=== PATIENT | male | born 1950 | race Caucasian/White ===

== ENCOUNTER 2017-01-14 08:31 | Outpatient (CLI) | payer MEDICARE, OTHER ==
--- NOTE | ~2017-01-14 | HEMODYNAMI ---
PATIENT:MARIE JOHNSON MEDICAL RECORD: [id number] : 52 LOCATION:[facility] ADMISSION DATE: 01/14/17 Generatedon:01/14/201714:12 Patient name: MARIE JOHNSON Patient #: [id number] SSN: : 1950 Date of study: 01/14/2017 Page: Of Hemodynamic Procedure Report Patient Data Patient Demographics Procedure consent was obtained First Name: MARIE Gender: Male Last Name: ALEX : 1950 Middle Initial: SHANNEN Age: 66 year(s) Patient #: [id number] Race: Unknown Additional ID: [id number] Contact details [address]: [address] [place] [address] State: [place] City: [place] Zip code: [address] Admission Admission Data Admission Date: 01/14/2017 Admission Time: 8:31 Arrival Date: 01/14/2017 Arrival Time: 0:00 Admit Source: Other Insurance Payor: Medicare Height (in.): 72 BSA: 2.07 (m2) Height (cm.): 182.88 BMI: 25.36 (kg/m2) Weight (lbs.): 187 Weight (kg.): 84.82 Lab Results Lab Result Date: 01/14/2017 Lab Result Time: 0:00 Biochemistry Name Units Result Min Max BUN mg/dl 13 --(--*-)-- 7 18 Creatinine mg/dl 1 --(--*-)-- 0.6 1.3 CBC Name Units Result Min Max Hemoglobin g/dl 16.4 --(--*-)-- 13.5 17.5 Procedure Procedure Types Cath Procedure Diagnostic Procedure LHC LHC w/Coronaries w/Grafts PCI Procedure Coronary Stent Initial Miscellaneous Procedures Moderate Sedation up to 30 minutes Procedure Description Procedure Date Procedure Date: 01/14/2017 Procedure Start Time: 13:54 Procedure End Time: 14:07 Procedure Staff Name Function Kevon Adames MD Performing Physician Lashanda Vasquez RT Scrub Celso Tejada RN Nurse Shahana Dill RT Monitor Procedure Data Cath Procedure Fluoroscopy Diagnostic fluoroscopy Total fluoroscopy Time: 3.9 time: 3.9 min min Diagnostic fluoroscopy Total fluoroscopy dose: 789 dose: 789 mGy mGy Contrast Material Contrast Material Type Amount (ml) Isovue 300 116 Entry Location Entry Primary Successful Side Size Upsize Upsize Entry Closure Succes sful Closure Location (Fr) 1 (Fr) 2 (Fr) Remarks Device Remarks Femoral Right 5 Fr 6 Fr Exoseal artery Short Estimated blood loss: 5 ml Diagnostic catheters Device Type Used For End Catheter Placement Cordis 5Fr Pigtail LV Angiography Catheter (MP) Cordis 5Fr JL 4.0 Left Coronary Catheter (MP) Angiography Diagnostic Infinity 5Fr Multi-vessel AR 2 MOD catheter Angiography Procedure Complications No complications Procedure Medications Medication Administration Route Dosage Oxygen NC 2 l/min Lidocaine 2% added to field 20 Heparin Flush Bag added to field 2 bags (1000units/500ml NS) 0.9% NaCl I.V. 100 ml/hr Versed I.V. 2 mg Fentanyl I.V. 100 mcg Fentanyl I.V. 50 mcg Versed I.V. 1 mg Fentanyl I.V. 50 mcg Versed I.V. 1 mg Heparin Bolus I.V. 4000 units Versed I.V. 1 mg Fentanyl I.V. 50 mcg Versed I.V. 1 mg Fentanyl I.V. 50 mcg Hemodynamics Rest BSA: 2.07 (m2) HGB: 16.4 (g/dl) O2 Consumption: Estimated: 248.13 (ml/min) O2 Co nsumption indexed: Estimated:119.87 (ml/min/m) Heart Rate: 79 (bpm) Pressure Samples Time Site Value (mmHg) Purpose Heart Use Rate(bpm) 13:55 LV 107/13,17 Snapshot 78 Snapshots Pre Cath Intra NCS Post Cath Vital Signs Time Heart Resp SPO2 etCO2 NIBP (mmHg) Rhythm Pain Sedation Rate (ipm) (%) (mmHg) Status Level (bpm) 13:27:49 74 16 100 35.5 150/83(137) NSR 0 (11) 10(A) , No pain 13:32:01 78 14 100 27.9 134/89(114) NSR 0 (11) 10(A) , No pain 13:36:11 74 17 100 36.3 136/86(112) NSR 0 (11) 10(A) , No pain 13:40:19 73 15 95 33.2 125/89(107) NSR 0 (11) 10(A) , No pain 13:44:22 74 16 98 37.8 122/90(111) NSR 0 (11) 10(A) , No pain 13:49:11 82 17 99 27.9 134/85(104) NSR 0 (11) 9(A) , No pain 13:53:21 85 14 98 37 107/82(104) NSR 0 (11) 9(A) , No pain 13:57:17 91 14 98 0 117/92(111) NSR 0 (11) 9(A) , No pain 14:01:16 86 14 99 24.1 134/92(110) NSR 0 (11) 10(A) , No pain 14:05:26 92 14 99 37 122/79(102) NSR 0 (11) 10(A) , No pain 14:11:04 81 18 99 35.5 125/88(107) NSR 0 (11) 10(A) , No pain Medications Time Medication Route Dose Verified Delivered Reason Notes Effectiveness by by 13:26:21 Oxygen NC 2 Kevon Buffie used for l/min Rosangela Tejada RN procedure 13:26:27 Lidocaine 2% added 20ml Kevon Kevon for local to vial Rosangela Adames MD anesthetic field 13:26:32 Heparin Flush added 2 Kevon Kevon used for Bag to bags Rosangela Adames MD procedure (1000units/500ml field NS) 13:26:42 0.9% NaCl I.V. 100 Kevon Buffie Per physician ml/hr Rosangela Tejada RN 13:46:10 Versed I.V. 2 mg Kevon Buffie for sedation Rosangela Tejada RN 13:46:21 Fentanyl I.V. 100 Kevon Buffie for sedation mcg Rosangela Tejada RN 13:51:04 Fentanyl I.V. 50 Kevon Buffie for sedation mcg Rosangela Tejada RN 13:51:09 Versed I.V. 1 mg Kevon Buffie for sedation Rosangela Tejada RN 13:54:00 Fentanyl I.V. 50 Kevon Bessie for sedation mcg Rosangela Tejada RN 13:54:14 Versed I.V. 1 mg Kevon [place] for sedation Rosangela Tejada RN 14:01:12 Heparin Bolus I.V. 4000 Kevon [place] for verifi ed units Rosangela Tejada RN anticoagulation by 14:02:51 Versed I.V. 1 mg Kevon [place] for sedation Rosangela Tejada RN 14:02:56 Fentanyl I.V. 50 Kevon [place] for sedation mcg Rosangela Tejada RN 14:06:17 Versed I.V. 1 mg Kevon [place] for sedation Rosangela Tejada RN 14:06:21 Fentanyl I.V. 50 Kevon [place] for sedation mcg Rosangela Tejada RN Procedure Log Time Note 13:16:36 Informed consent obtained and on chart 13:16:40 Diagnostic Cath Status : Elective 13:17:04 Lashanda Vasquez RT(R) sent for patient. Start room use. 13:17:06 Time tracking: Regular hours 13:17:10 Plan of Care:Hemodynamics will remain stable., Cardiac rhythm will remain stable., Comfort level will be maintained., Respiratory function will remain adequate., Patient/ family verbilizes understanding of procedure., Procedure tolerated without complication., Recovers from procedure without complications.. 13:17:47 Admit Source: Other 13:17:51 Patient Height : 72 inches 13:17:59 Patient Weight : 187 lbs 13:17:59 Insurance Payor : Medicare 13:18:01 Arrival Date: 01/14/2017 12:00:00 AM 13:20:40 Lab Result : BUN 13 mg/dl 13:20:40 Lab Result : Hemoglobin 16.4 g/dl 13:20:40 Lab Result : Creatinine 1 mg/dl 13:23:34 Patient received from Pre/Post Procedure Room to CCL 1 Alert and oriented. Tansferred to table in Supine position. 13:23:35 Warm blankets applied, and mckenzie hugger turned on for patient comfort. 13:23:36 Correct patient and procedure confirmed by team. 13:23:36 ECG and BP/O2 sat monitors applied to patient. 13:26:21 Oxygen 2 l/min NC was administered by Celso Tejada RN; used for procedure; 13:26:27 Lidocaine 2% 20ml vial added to field was administered by Kevon Adames MD; for local anesthetic; 13:26:32 Heparin Flush Bag (1000units/500ml NS) 2 bags added to field was administered by Kevon Adames MD; used for procedure; 13:26:42 0.9% NaCl 100 ml/hr I.V. was administered by Celso Tejada RN; Per physician; 13:26:46 Vital chart was started 13:31:14 Baseline sample Acquired. 13:31:18 Rhythm: sinus rhythm 13:31:22 Full Disclosure recording started 13:31:27 H&P Date Dictated: 01/14/2017 Within 30 days and on chart., H&P Addendum completed by physician on day of procedure. (MUST COMPLETE FOR ALL OUTPATIENTS). 13:31:28 Pre-procedure instructions explained to patient. 13:31:29 Pre-op teaching completed and patient verbalized understanding. 13:31:30 Family in waiting room. 13:31:31 Patient NPO since Midnight. 13:31:53 Is the patient allergic to Iodine/contrast media? No. 13:31:54 Was the patient premedicated? No 13:31:55 Is patient on blood thinner?Yes 13:31:57 ACC The patient was administered the following blood thiners within the last 24 hours: ACCPlavix 13:31:59 Patient diabetic? No. 13:32:07 Previous problem with sedation/anesthesia? No ? 13:32:09 Snore? Yes 13:32:10 Sleep apnea? No 13:32:10 Deviated septum? No 13:32:11 Opens mouth fully? Yes 13:32:12 Sticks out tongue? Yes 13:32:14 Airway obstruction? No ? 13:32:16 Dentures? No ? 13:32:20 Pre procedure: right dorsailis pedis pulse 1+ Palpable, but thready & weak; easily obliterated 13:32:22 Pre procedure: left dorsailis pedis pulse 1+ Palpable, but thready & weak; easily obliterated 13:32:24 Patient pain scale 0/10 ?. 13:32:30 IV patent on arrival in left forearm with 0.9% NaCl at [facility]. 13:32:32 Lab results completed and on chart. 13:32:36 Right groin area was prepped with chlora-prep and draped in sterile fashion 13:32:37 Alarms reviewed by R. N. 13:32:38 Sharps counted by scrub and verified by R.N. 13:45:33 Physician arrived 13:45:33 --------ALL STOP TIME OUT------ 13:45:34 Final Timeout: patient, procedure, and site verified with staff and physician. All members of the team are in agreement. 13:45:36 Right groin site verified by team. 13:45:39 Physical assessment completed. ASA score P 2 - A patient with mild systemic disease as per Kevon Adames MD. 13:45:42 Sedation plan: IV Moderate Sedation Versed, Fentanyl 13:46:10 Versed 2 mg I.V. was administered by Celso Tejada RN; for sedation; 13:46:21 Fentanyl 100 mcg I.V. was administered by Celso Tejada RN; for sedation; 13:50:29 Use device set Femoral Dx 13:50:30 Acist Syringe opened to sterile field. 13:50:31 Bag Decanter opened to sterile field. 13:50:31 Medline Cath Pack opened to sterile field. 13:50:32 Terumo 5Fr Gary Sheath opened to sterile field. 13:50:32 St Sergio 260cm J .035 wire opened to sterile field. 13:50:34 Acist Hand Control opened to sterile field. 13:50:34 Acist Manifold opened to sterile field. 13:50:35 Diagnostic Infinity 5Fr Multipack catheter opened to sterile field. 13:50:35 Tegaderm 4 x 4 opened to sterile field. 13:51:04 Fentanyl 50 mcg I.V. was administered by Celso Tejada RN; for sedation; 13:51:09 Versed 1 mg I.V. was administered by Celso Tejada RN; for sedation; 13:52:08 Zero performed for pressure channel P1 13:54:00 Fentanyl 50 mcg I.V. was administered by Celso Tejada RN; for sedation; 13:54:14 Versed 1 mg I.V. was administered by Celso Tejada RN; for sedation; 13:54:32 Procedure started. 13:54:37 Local anesthetic to right femoral artery with Lidocaine 2% by Kevon Adames MD.INITIAL ACCESS ONLY 13:54:45 A 5 Fr sheath was inserted into the Right Femoral artery 13:55:28 A Cordis 5Fr Pigtail Catheter (MP) was advanced over the wire and used for LV Angiography. 13:55:45 LV hemodynamics recorded. 13:55:46 LV gram done using ARMSTRONG 13:55:50 Injector settings: Ml/sec: 5, Volume: 15, 13:55:55 EF : 60 % 13:55:58 Catheter removed. 13:56:03 A Cordis 5Fr JL 4.0 Catheter (MP) was advanced over the wire and used for Left Coronary Angiography. 13:56:38 LCA angiography performed. 13:56:42 Injector settings: Ml/sec: 3, Volume: 6, 13:57:38 Catheter removed. 13:58:07 A Diagnostic Infinity 5Fr AR 2 MOD catheter was advanced over the wire and used for Multi-vessel Angiography. 13:58:17 Terumo 6Fr Gary Sheath opened to sterile field. 13:58:19 Merit BasixCompak Inflation Kit opened to sterile field. 13:58:58 SVG to RCA angiography performed. 14:00:41 DANIELSON angiography performed. 14:00:46 Catheter removed. 14:00:50 Proceeding to intervention. 14:01:00 Sheath upsized to a 6 Fr Short. 14:01:12 Heparin Bolus 4000 units I.V. was administered by Celso Tejada RN; for anticoagulation; verified by 14:01:14 Cordis 6FR XBLAD 3.5 guide catheter opened to sterile field. 14:01:36 6 Fr xblad 3.5 guide catheter was inserted over the wire 14:02:51 Versed 1 mg I.V. was administered by Celso Tejada RN; for sedation; 14:02:56 Fentanyl 50 mcg I.V. was administered by Celso Tejada RN; for sedation; 14:03:25 Ngo Whisper J 300cm 0.014 guide wire opened to sterile field. 14:03:34 whisper wire advanced. 14:03:37 Wire advanced across lesion. 14:03:55 Inflation Number: 1 A Keaton OTW 2.5 x 22 stent was prepped and advanced across the Prox LAD. The stent was deployed at 13 MARKIE for 0:10 (min:sec). 14:04:03 Inflation number: 2 The stent balloon was then re-inflated across the Prox LAD to 17 MARKIE for 0:10 (min:sec). 14:04:44 Stent catheter was removed intact over wire. 14:04:49 Wire removed. 14:04:50 Guide catheter removed. 14:05:17 Cordis 6Fr Exoseal opened to sterile field. 14:06:16 Sheath removed intact; hemostasis achieved with Exoseal to the Right Femoral artery. 14:06:17 Versed 1 mg I.V. was administered by Celso Tejada RN; for sedation; 14:06:18 Procedure ended.(Physican Out) 14:06:21 Fentanyl 50 mcg I.V. was administered by Celso Tejada RN; for sedation; 14:06:23 Fluoroscopy time 03.90 minutes. 14:06:28 Flurop Dose total: 789 14:06:28 Fluoroscopy dose: 789 mGy 14:06:33 Contrast amount:Isovue 300 116ml. 14:06:35 Sharps counted by scrub and verified by R.N. 14:06:36 Insertion/operative site no bleeding no hematoma. 14:06:39 Post-op/insertion site Right Femoral artery dressed using a 4 x 4 and Tegaderm. 14:06:42 Post right femoral artery:stable 14:06:50 Post Procedure Pulses reassessed and unchanged 14:06:53 Post procedure rhythm: unchanged. 14:06:55 Estimated blood loss: 5 ml 14:06:57 Post procedure instruction explained to patient.Patient verbalizes understanding. 14:06:57 Patient needs reinforcement of post procedure teaching. 14:07:12 Procedure type changed to Cath procedure, Diagnostic procedure, LHC, LHC w/Coronaries w/Grafts, PCI procedure, Coronary Stent Initial, Miscellaneous Procedures, Moderate Sedation up to 30 minutes 14:07:13 Procedure and supply charges have been captured, reviewed, submitted and are correct. 14:07:19 Procedure Complication : No complications 14:07:21 Vital chart was stopped 14:07:21 See physician's report for complete and final results. 14:07:27 Report given to Pre/Post Procedure Room. 14:07:29 Patient transfered to Pre/Post Procedure Room with Stretcher. 14:07:31 Procedure ended. 14:07:31 Full Disclosure recording stopped 14:07:41 ACC-PCI Only Patient was given prescriptions, or instructed by Kevon Adames MD to start/continue the following medications upon discharge: Plavix 14:07:43 End room use (Document Last) Intervention Summary Intervention Notes Time ActionType Lesion and Equipment Action# Pressure Duration Attributes Used 14:03:55 Place stent Prox LAD Keaton OTW 1 13 00:10 2.5 x 22 stent 14:04:03 Reinflate Prox LAD Keaton OTW 2 17 00:10 stent 2.5 x 22 balloon stent Device Usage Item Name Manufacture Quantity Catalog Hospital Part Current Minimal Lot# / Number Charge Number Stock Stock Serial# Code Acist Acist 1 76584 230653 094893 138459 20 Syringe Medical Systems Inc Bag Microtek 1 2002S 830419 26735 661120 5 Decanter Medical Inc. Medline Cardinal 1 [id number] 185741 53203 858514 5 Cath Pack Health Terumo 5Fr Terumo 1 [id number] 551856 982723 158841 [address] S[address] St Sergio 1 869337 179244 515522 076502 30 260cm J .035 wire Acist Hand Acist 1 89794 130354 547624 284761 5 Control Medical Systems Inc Acist Acist 1 36201 274140 287510 694605 5 Manifold Medical Systems Inc Diagnostic Cardinal 1 [id number] 879727 37351 556313 30 Infinity Health 5Fr Multipack catheter Tegaderm 4 3M 1 1626W 448969 234259 685240 5 x 4 Cordis 5Fr Cardinal 1 782494 5 Pigtail Health Catheter (MP) Cordis 5Fr Cardinal 1 799995 5 JL 4.0 Health Catheter (MP) Diagnostic Cardinal 1 [id number] 496396 863586 635252 20 Infinity Health 5Fr AR 2 MOD catheter Terumo 6Fr Terumo 1 FSS258 584832 913624 487333 40 Gary Sheath Merit Merit 1 CO7778 226473 853860 604196 15 Dexcom Medical Inflation Kit Cordis 6FR Cardinal 1 [id number] 897724 178741 714530 10 XBLAD 3.5 Health guide catheter Ngo Ngo 1 [id number] 199397 872671 814515 5 Whisper J Vascular 300cm 0.014 guide wire Keaton OTW Medtronic 1 [id number] 251137 83404 645333 5 [id number] 2.5 x 22 stent Cordis 6Fr Cardinal 1 EX600 382639 877171 121713 10 [facility] Health Signature Audit [place] Stage Time Signature Unsigned Intra-Procedure 01/14/2017 Shahana Dill 2:12:31 PM RT(R) Signatures Monitor : Shahana Dill RT Signature : Date : Time : [id number] [place] [address]
[2017-01-14] MEDS ORDERED: PLAVIX75 MG PO (08:50)
[2017-01-14] MEDS ORDERED: BUPROPION XL300 MG PO (08:50)
[2017-01-14] MEDS ORDERED: PRAVACHOL80 MG PO (08:51)
[2017-01-14] MEDS ORDERED: BAYER CHEWABLE81 MG PO (08:51)
[2017-01-14] MEDS ORDERED: METOPROLOL TART25 MG PO (08:51)
[2017-01-14] MEDS ORDERED: XANAX0.5 MG PO (08:52)
[2017-01-14] MEDS ORDERED: OMEPRAZOLE20 M1 PO (08:52)
[2017-01-14] MEDS ORDERED: ZANTAC150 MG PO (08:52)
[2017-01-14 09:02] VITALS: BP 151/84; BMI 26.5
[2017-01-14 09:11] LABS: BASOPHILS 0.2 % (0-2); EOSINOPHILS 1.6 % (0-7); HEMATOCRIT 48.9 % (42.0-54.0); HEMOGLOBIN 16.4 g/dL (13.5-17.5); IMMATURE GRANULOCYTES 0.3 % (0-5); LYMPHOCYTES 13.9 % (15-50); MCHC 33.5 g/dL (31.0-37.0); MCV 95.3 fL (80.0-100.0); MEAN PLATELET VOLUME 10.5 fL (7.4-10.4); MONOCYTES 12.6 % (2-11); NEUTROPHILS 71.4 % (40-80); PLATELET COUNT 180 10x3/uL (130-400); RBC 5.13 10x6/uL (4.20-6.10); RDW 12.4 % (11.5-14.5); WBC 6.1 10x3/uL (4.8-10.8)
[2017-01-14 09:21] LABS: CALC OSMOLALITY 282 mosm/kg (275-300); CALCIUM 9.2 mg/dL (8.5-10.1); CHLORIDE - SERUM 104 mmol/L (98-107); GLUCOSE 102 mg/dL (74-106); POTASSIUM - SERUM 4.4 mmol/L (3.5-5.1); SODIUM 142 mmol/L (136-145); UREA NITROGEN 13 mg/dL (7-18); eGFR NON AFRICAN AMERICAN 80 mL/min (90-120)
--- NOTE | 2017-01-14 14:36 | NUR ---
RECIEVED TO ROOM VIA STRETCHER FROM FINISHING SUPERVISOR PLASTIC SHEETS WITH 6 FR EXOSEAL R/GROIN CDI NO BLEEDING NO HEMATOMA NOTED. REPORTS OF ONE STENT TO THE LAD. PATIENT DENIED CHEST PAIN AND VSS
--- NOTE | 2017-01-14 14:46 | NUR ---
6 FR EXOSEAL R/GROIN CDI NO BLEEDING NO HEMATOMA NOTED. VSS WITH CHEST PAIN DENIED. DR URBINA AT BEDSIDE
--- NOTE | 2017-01-14 15:15 | NUR ---
6 FR EXOSEAL R/GROIN CDI NO BLEEDING NO HEMATOMA NOTED.VSS WITH CHEST PAIN DENIED
--- NOTE | 2017-01-14 16:13 | NUR ---
PATIENT CONTINUES TO SLEEP WITH NO DISTRESS NOTED. 6 FR EXOSEAL R/GROIN CDI VSS
--- NOTE | 2017-01-14 17:28 | NUR ---
ELEVATED HOB, WILL MONITOR R GROIN FOR BLEEDING. AT SIDE. ALL VITALS WNL.
--- NOTE | 2017-01-14 17:44 | NUR ---
PIV REMOVED FROM LEFT AC WITH BANDAID APPLIED. UP TO BEDSIDE TO DRESS. AMBULATED TO BATHROOM TO VOID. R GROIN REMAINS C/D/I AFTER AMBULATING.
--- NOTE | 2017-01-14 18:05 | NUR ---
D/C INSTRUCTIONS DISCUSSED WITH PATIENT AND AT BEDSIDE. WHEELED OUT VIA WHEELCHAIR BY CATH TEAM.
--- NOTE | 2017-01-21 14:14 | OP ---
PATIENT NAME: MARIE JOHNSON MEDICAL RECORD: [id number] :52 LOCATION:D.CAT ADMISSION DATE: SURGEON: DOUG URBINA MD DATE OF OPERATION: 01/14/2017 PROCEDURES: 1. PTCA stent LAD. 2. Left heart catheterization. 3. Selective coronary angiography. 4. Vein graft angiography. 5. DANIELSON angiography. 6. Left ventriculogram. INDICATION: Angina and coronary artery disease. PROCEDURE IN DETAIL: After informed consent was obtained and after a detailed explanation of the risks, benefits as well as alternative therapies, the patient elected to proceed with angiogram and angioplasty. The right femoral area was prepped and draped in normal sterile fashion. Right femoral artery was cannulated via modified Seldinger technique with placement of 6-Icelandic sheath. All catheters exchanged through this sheath. FINDINGS: Left ventriculogram was performed in standard 30-degree ARMSTRONG view reveals preserved cardiac wall motion throughout all segments. Overall ejection fraction 55% to 60%. SELECTIVE CORONARY ANGIOGRAPHY: 1. Left main showed no significant angiographic disease. 2. Left anterior descending has previously placed stent that is patent; however, there is a 75% stenosis after this. 3. DANIELSON is patent to the LAD diagonal, very atretic and almost nonfunctional, definitely does not fill the LAD. 4. Vein graft. Most likely to the LAD is closed. 5. Left circumflex shows moderate irregularities, but no flow-limiting stenosis. 6. Right coronary artery is totally occluded in the proximal vessel. 7. Vein graft in a skipped fashion to right PDA and PLV is widely patent. PTCA STENT OF THE LAD: The stent used was a 2.5 x 22 mm Keaton. Result was 0% residual stenosis. OVERALL IMPRESSION: Successful percutaneous transluminal coronary angioplasty stent of the left anterior descending going from 75% initial stenosis with a closed graft to 0% residual stenosis. TRANSINT:[id number] Voice Confirmation ID: [id number] DOCUMENT ID: [id number] OPERATIVE REPORT [id number] MARIE JOHNSON DOUG URBINA MD at 1414 CC: [id number] DICTATION DATE: 01/14/17 1410 DESIGN ENGINEERING TECHNICIAN: 01/14/17 1458 DEP CLI 01/14/17 [place] [address]
== END 2017-01-14 18:06 | disposition home or self-care (01) ==
LOC: D.CATH 08:31
PROVIDERS: Internal Medicine Interventional Cardiology
DX: I25.119 Atherosclerotic heart disease of native coronary artery with unspecified angina pectoris (principal); I25.719 Atherosclerosis of autologous vein coronary artery bypass graft(s) with unspecified angina pectoris; Z95.5 Presence of coronary angioplasty implant and graft; Z01.812 Encounter for preprocedural laboratory examination
CPT/HCPCS: 93459; C9600

== ENCOUNTER 2017-02-16 20:41 | Emergency (ER) | payer MEDICARE, OTHER ==
[~2017-02-16 20:41] MED LIST: BAYER CHEWABLE81 MG PO; BUPROPION XL300 MG PO; METOPROLOL TART25 MG PO; OMEPRAZOLE20 M1 PO; PLAVIX75 MG PO; PRAVACHOL80 MG PO; XANAX0.5 MG PO; ZANTAC150 MG PO
[2017-02-16 21:40] LABS: BASOPHILS 0.1 % (0-2); EOSINOPHILS 0.5 % (0-7); HEMATOCRIT 47.4 % (42.0-54.0); IMMATURE GRANULOCYTES 0.3 % (0-5); MCH 31.2 pg (26.0-34.0); MCHC 33.8 g/dL (31.0-37.0); MCV 92.4 fL (80.0-100.0); MEAN PLATELET VOLUME 10.7 fL (7.4-10.4); MONOCYTES 6.8 % (2-11); NEUTROPHILS 82.3 % (40-80); PLATELET COUNT 187 10x3/uL (130-400); RBC 5.13 10x6/uL (4.20-6.10); WBC 7.5 10x3/uL (4.8-10.8)
[2017-02-16 22:02] LABS: ALBUMIN 3.8 g/dL (3.4-5.0); ALKALINE PHOSPHATASE 93 U/L (46-116); ALT (SGPT) 39 U/L (10-68); BILIRUBIN - TOTAL 0.42 mg/dL (0.2-1.3); CALC OSMOLALITY 278 mosm/kg (275-300); CARBON DIOXIDE 27.3 mmol/L (21.0-32.0); CHLORIDE - SERUM 101 mmol/L (98-107); CREATININE - SERUM 1.2 mg/dL (0.6-1.3); GLUCOSE 113 mg/dL (74-106); PROTEIN - SERUM 7.1 g/dL (6.4-8.2); SODIUM 139 mmol/L (136-145); UREA NITROGEN 13 mg/dL (7-18); eGFR NON AFRICAN AMERICAN 64 mL/min (90-120)
[2017-02-16 22:26] LABS: CHOL - HDL RATIO 2.7 ratio (2.3-4.9); CHOLESTEROL, TOTAL 211 mg/dL (0-200); CKMB 0.5 U/L (0.0-3.6); CREATINE KINASE 48 UL (21-232); HDL CHOLESTEROL 77 mg/dL (32-96); LDL CHOLESTEROL 104 mg/dL (0-100); LDL-HDL RATIO 1.4 ratio (1.5-3.5); TRIGLYCERIDE 152 mg/dL (30-200)
[2017-02-16 22:29] LABS: TROPONIN-I < 0.017 ng/mL (0.000-0.060)
[2017-02-17 01:01] LABS: CKMB 0.5 U/L (0.0-3.6); CREATINE KINASE 49 UL (21-232); TROPONIN-I < 0.017 ng/mL (0.000-0.060)
== END 2017-02-17 01:26 | disposition home or self-care (01) ==
LOC: D.ER 20:41
PROVIDERS: Family Medicine
DX: R07.9 Chest pain, unspecified (principal)

== ENCOUNTER 2017-06-22 09:57 | Outpatient (CLI) | payer MEDICARE, OTHER ==
[~2017-06-22] VITALS: Ht 182.9 cm; Wt 90.9 kg
--- NOTE | ~2017-06-22 | OP ---
PATIENT NAME: MARIE JOHNSON MEDICAL RECORD: [id number] :52 LOCATION:D.CAT ADMISSION DATE: SURGEON: DOUG URBINA MD DATE OF OPERATION: 06/22/2017 PROCEDURES: 1. PTCA stent LAD. 2. Left heart catheterization. 3. Selective coronary angiography. 4. Left ventriculogram. 5. Intravascular ultrasound. 6. Vein graft angiography. INDICATION: Angina and coronary artery disease. PROCEDURE IN DETAIL: After informed consent was obtained and after detailed explanation of risks, benefits as well as alternative therapies, the patient elected to proceed with angiogram and angioplasty. The right femoral area is prepped and draped in normal sterile fashion. Right femoral artery was cannulated via modified Seldinger technique with placement of 6-Malian sheath. All catheters were exchanged through this sheath. FINDINGS: 1. Left main has no significant angiographic disease. 2. Left anterior descending has previously placed stent with greater than 77% in-stent restenosis proximally confirmed by intravascular ultrasound. 3. The left circumflex has moderate irregularities, but no flow-limiting stenosis. 4. Right coronary artery is totally occluded. 5. Vein graft to the right coronary is widely patent. Distal right coronary is widely patent. 6. Left ventriculogram was performed in standard 30-degree ARMSTRONG view reveals good cardiac wall motion throughout all segments. Overall ejection fraction is 50%. PTCA STENT OF THE LAD: The stent used was a 3.5 x 22 mm [place], result was 0% residual stenosis. OVERALL IMPRESSION: Successful percutaneous transluminal coronary angioplasty stent of the left anterior descending going from 77% initial stenosis to 0% residual. TRANSINT:[id number] Voice Confirmation ID: [id number] DOCUMENT ID: [id number] DOUG URBINA MD at 0956 CC: [id number] DICTATION DATE: 06/22/17 1212 RIBBON CLEANER: 06/22/17 1427 [facility] CLI 06/22/[address] [address]
--- NOTE | ~2017-06-22 | HEMODYNAMI ---
PATIENT:MARIE JOHNSON MEDICAL RECORD: [id number] : 52 LOCATION:[facility] ADMISSION DATE: 06/22/17 Generatedon:06/22/201712:16 Patient name: MARIE JOHNSON Patient #: [id number] SSN: : 1950 Date of study: 06/22/2017 Page: Of Hemodynamic Procedure Report Patient Data Patient Demographics Procedure consent was obtained First Name: MARIE Gender: Male Last Name: ALEX : 1950 Middle Initial: RAY Age: 66 year(s) Patient #: [id number] Race: Additional ID: [id number] Contact details Address: [address] [place] [address] State: [place] City: [place] Zip code: [address] Past Medical History Allergies: No known allergies Admission Admission Data Admission Date: 06/22/2017 Admission Time: 9:57 Lab Results Lab Result Date: 06/22/2017 Lab Result Time: 0:00 CBC Name Units Result Min Max Hemoglobin g/dl 14.7 --(-*--)-- 13.5 17.5 Procedure Procedure Types Cath Procedure Diagnostic Procedure LHC LHC w/Coronaries w/Grafts PCI Procedure Coronary Stent Coronary Stent Initial Procedure Description Procedure Date Procedure Date: 06/22/2017 Procedure Start Time: 12:00 Procedure End Time: 12:12 Procedure Staff Name Function Kevon Adames MD Performing Physician Lashanda Vasquez RT Monitor Celso Tejada RN Nurse Shahana Dill RT Scrub Procedure Data Cath Procedure Fluoroscopy Diagnostic fluoroscopy Total fluoroscopy Time: 2.6 time: 2.6 min min Diagnostic fluoroscopy Total fluoroscopy dose: 514 dose: 514 mGy mGy Contrast Material Contrast Material Type Amount (ml) Isovue 300 87 Entry Location Entry Primary Successful Side Size Upsize Upsize Entry Closure Succes sful Closure Location (Fr) 1 (Fr) 2 (Fr) Remarks Device Remarks Femoral Right 5 Fr 6 Fr Exoseal artery Short Estimated blood loss: 10 ml Diagnostic catheters Device Type Used For End Catheter Placement MULTIPACK Pigtail 5 Fr Procedure catheter MULTIPACK JL 4.0 5Fr Procedure catheter MULTIPACK 3DRC 5Fr catheter Procedure Complications No complications Procedure Medications Medication Administration Route Dosage Oxygen NC 2 l/min Lidocaine 2% added to field 20 Heparin Flush Bag added to field 2 bags (1000units/500ml NS) 0.9% NaCl I.V. 100 ml/hr Versed I.V. 1 mg Fentanyl I.V. 50 mcg Versed I.V. 1 mg Fentanyl I.V. 50 mcg Heparin Bolus I.V. 4000 units Hemodynamics Rest HGB: 14.7 (g/dl) Heart Rate: 117 (bpm) Snapshots Pre Cath Intra NCS Post Cath Vital Signs Time Heart Resp SPO2 etCO2 NIBP (mmHg) Rhythm Pain Sedation Rate (ipm) (%) (mmHg) Status Level (bpm) 11:44:22 72 24 98 0 143/90(125) NSR 0 (11) 10(A) , No pain 11:48:30 67 15 99 24.6 157/100(123) NSR 0 (11) 10(A) , No pain 11:52:45 65 14 97 38.1 128/84(99) NSR 0 (11) 10(A) , No pain 11:56:51 65 12 96 38.8 134/85(122) NSR 0 (11) 10(A) , No pain 12:01:01 82 13 96 42.6 133/83(108) NSR 0 (11) 9(A) , No pain 12:05:09 80 15 95 51.5 133/86(116) NSR 0 (11) 9(A) , No pain 12:09:15 81 14 97 38.8 142/89(103) NSR 0 (11) 10(A) , No pain 12:15:26 75 14 97 29.8 135/89(109) NSR 0 (11) 10(A) , No pain Medications Time Medication Route Dose Verified Delivered Reason Notes Effectiveness by by 11:49:24 Oxygen NC 2 Kevon Houston used for l/min Rosangela Tejada RN procedure 11:49:49 Lidocaine 2% added 20ml Kevon Lund used for to vial Rosangela Adames MD procedure field 11:49:54 Heparin Flush added 2 Kevon Lund used for Bag to bags Rosangela Adames MD procedure (1000units/500ml field NS) 11:50:05 0.9% NaCl I.V. 100 Kevon Buffie Per physician ml/hr Rosangela Tejada RN 11:57:27 Versed I.V. 1 mg Kevon Buffie for sedation Rosangela Tejada RN 11:57:33 Fentanyl I.V. 50 Kevon Buffie for sedation mcg Rosangela Tejada RN 12:03:38 Versed I.V. 1 mg Kevno Bessie for sedation Rosangela Tejada RN 12:03:42 Fentanyl I.V. 50 Kevon Buffie for sedation mcg Rosangela Tejada RN 12:05:06 Heparin Bolus I.V. 4000 Kevon Buffie for verifi ed units Rosangela Tejada RN anticoagulation with dr adames Procedure Log Time Note 11:42:00 Informed consent obtained and on chart 11:42:05 Diagnostic Cath Status : Elective 11:42:42 Time tracking: Regular hours (M-F 7:00 - 5:00) 11:42:47 Plan of Care:Hemodynamics will remain stable., Cardiac rhythm will remain stable., Comfort level will be maintained., Respiratory function will remain adequate., Patient/ family verbilizes understanding of procedure., Procedure tolerated without complication., Recovers from procedure without complications.. 11:43:11 Patient received from Pre/Post Procedure Room to CCL 2 Alert and oriented. Tansferred to table in Supine position. 11:43:14 Warm blankets applied, and mckenzie hugger turned on for patient comfort. 11:43:17 Correct patient and procedure confirmed by team. 11:43:19 ECG and BP/O2 sat monitors applied to patient. 11:43:19 Vital chart was started 11:43:20 Baseline sample Acquired. 11:43:29 Baseline sample Acquired. 11:43:38 Baseline sample Acquired. 11:43:42 Baseline sample Acquired. 11:43:52 Baseline sample Acquired. 11:43:55 Full Disclosure recording started 11:44:09 H&P Date Dictated: 06/21/2017 Within 30 days and on chart., H&P Addendum completed by physician on day of procedure. (MUST COMPLETE FOR ALL OUTPATIENTS). 11:44:11 Pre-procedure instructions explained to patient. 11:44:14 Pre-op teaching completed and patient verbalized understanding. 11:44:22 Family in waiting room. 11:44:25 Patient NPO since Midnight. 11:44:36 Patient allergic to No known allergies 11:44:41 Is the patient allergic to Iodine/contrast media? No. 11:44:49 Is patient on blood thinner?Yes 11:44:53 ACC The patient was administered the following blood thiners within the last 24 hours: ACCPlavix 11:44:56 Patient diabetic? No. 11:44:58 ----Pre-sedation anethsthesia assessment.---- 11:45:01 Previous problem with sedation/anesthesia? No ? 11:45:03 Snore? Yes 11:45:05 Sleep apnea? No 11:45:06 Deviated septum? No 11:45:07 Opens mouth fully? Yes 11:45:09 Sticks out tongue? Yes 11:45:14 Airway obstruction? No ? 11:45:18 Dentures? No ? 11:45:26 Pre procedure: right dorsailis pedis pulse 1+ Palpable, but thready & weak; easily obliterated 11:45:38 Patient pain scale 0/10 ?. 11:45:49 IV patent on arrival in left hand with 0.9% NaCl at [facility]. 11:49:24 Oxygen 2 l/min NC was administered by Celso Tejada RN; used for procedure; 11:49:49 Lidocaine 2% 20ml vial added to field was administered by Kevon Adames MD; used for procedure; 11:49:54 Heparin Flush Bag (1000units/500ml NS) 2 bags added to field was administered by Kevon Adames MD; used for procedure; 11:49:58 Lab Result : Hemoglobin 14.7 g/dl 11:50:05 0.9% NaCl 100 ml/hr I.V. was administered by Celso Tejada RN; Per physician; 11:50:06 Right groin area was prepped with chlora-prep and draped in sterile fashion 11:50:07 Alarms reviewed by R. N. 11:50:08 Sharps counted by scrub and verified by R.N. 11:50:08 Physician paged 11:56:26 Physician arrived 11:56:28 --------ALL STOP TIME OUT------ 11:56:29 Final Timeout: patient, procedure, and site verified with staff and physician. All members of the team are in agreement. 11:56:33 Right groin site verified by team. 11:56:37 Physical assessment completed. ASA score P 2 - A patient with mild systemic disease as per Kevon Adames MD. 11:56:42 Sedation plan: IV Moderate Sedation Medication:Versed, Fentanyl 11:57:27 Versed 1 mg I.V. was administered by Celso Tejada RN; for sedation; 11:57:33 Fentanyl 50 mcg I.V. was administered by Celso Tejada RN; for sedation; 11:58:29 Use device set Femoral Dx 11:59:54 Zero performed for pressure channel P1 12:00:01 Procedure started. 12:00:25 ACIST Syringe (58493) opened to sterile field. 12:00:26 Bag Decanter (2002S) opened to sterile field. 12:00:29 Medline Cath Pack ([id number]) opened to sterile field. 12:00:30 SHEATH 5FR [place] (VWW801) opened to sterile field. 12:00:32 DIAGNOSTIC WIRE .035 260cm J wire (156135) opened to sterile field. 12:00:33 ACIST Hand Control (80368) opened to sterile field. 12:00:34 ACIST Manifold (04586) opened to sterile field. 12:00:35 DIAGNOSTIC Multipack 5Fr catheter set ([id number]) opened to sterile field. 12:00:37 Tegaderm 4 x 4 (1626W) opened to sterile field. 12:00:43 PERCUTANEOUS ENTRY 19GA needle opened to sterile field. 12:00:50 Local anesthetic to right femoral artery with Lidocaine 2% by Kevon Adames MD.INITIAL ACCESS ONLY 12:00:58 A 5 Fr sheath was inserted into the Right Femoral artery 12:01:11 A MULTIPACK Pigtail 5 Fr catheter was advanced over the wire and used for Procedure. 12:01:20 EF : 50 % 12:01:22 Catheter removed. 12:02:23 A MULTIPACK JL 4.0 5Fr catheter was advanced over the wire and used for Procedure. 12:02:30 LCA angiography performed. 12:02:32 Catheter removed. 12:02:40 A MULTIPACK 3DRC 5Fr catheter was advanced over the wire and used for . 12:02:50 SVG to RCA angiography performed. 12:03:38 Versed 1 mg I.V. was administered by Celso Tejada RN; for sedation; 12:03:42 Fentanyl 50 mcg I.V. was administered by Celso Tejada RN; for sedation; 12:04:04 CHOICE PT Extra Support 182cm wire ([id number]) opened to sterile field. 12:04:05 INFLATOR Merit BasixCompak (YK1825) opened to sterile field. 12:04:07 SHEATH 6Fr Prel[place] ([id number]) opened to sterile field. 12:04:16 Catheter removed. 12:04:17 Proceeding to intervention. 12:04:34 6 Fr XBLAD 3.5 guide catheter was inserted over the wire 12:04:41 Sheath upsized to a 6 Fr Short. 12:04:59 [place] IVUS Catheter (93163N) opened to sterile field. 12:05:06 Heparin Bolus 4000 units I.V. was administered by Celso Tejada RN; for anticoagulation; verified with dr adames 12:05:24 choice pt ex wire advanced. 12:07:01 IVUS catheter advanced over wire. 12:07:38 IVUS catheter removed over wire. 12:08:37 Place stent Inflation Number: 1 A KARRI RX 3.5 x 22 stent ([id number]) was prepped and advanced across the Prox LAD. The stent was deployed at 13 MARKIE for 0:10 (min:sec). 12:08:49 Inflation number: 2 The stent balloon was then re-inflated across the Prox LAD to 13 MARKIE for 0:10 (min:sec). 12:09:53 EXOSEAL 6Fr (EX600) opened to sterile field. 12:10:00 Wire removed. 12:10:01 Guide catheter removed. 12:10:10 Sheath removed intact; hemostasis achieved with Exoseal to the Right Femoral artery. 12:10:13 Procedure ended.(Physican Out) 12:10:23 Fluoroscopy time 02.60 minutes. 12::28 Fluoroscopy dose: 514 mGy 12:: Flurop Dose total: 514 12:10:32 Contrast amount:Isovue 300 87ml. 12:10:33 Sharps counted by scrub and verified by R.N. 12:10:38 Insertion/operative site no bleeding no hematoma. 12:10:41 Post Procedure Pulses reassessed and unchanged 12:10:46 Post procedure rhythm: unchanged. 12:10:49 Estimated blood loss: 10 ml 12:10:51 Post procedure instruction explained to patient.Patient verbalizes understanding. 12:11:22 Procedure type changed to Cath procedure, Diagnostic procedure, LHC, LHC w/Coronaries w/Grafts, PCI procedure, Coronary Stent, Coronary Stent Initial 12:11:25 Procedure and supply charges have been captured, reviewed, submitted and are correct. 12:12:13 Procedure Complication : No complications 12:12:15 Vital chart was stopped 12:12:16 See physician's report for complete and final results. 12:12:18 Report given to Pre/Post Procedure Room. 12:12:20 Patient transfered to Pre/Post Procedure Room with Stretcher. 12:12:23 Procedure ended. 12:12:23 Full Disclosure recording stopped 12:12:31 End room use (Document Last) Intervention Summary Intervention Notes Time ActionType Lesion and Equipment Used Action# Pressure Duration Attributes 12:08:[address] stent Prox LAD KARRI RX 3.5 x 1 13 00:10 22 stent ([id number]) 12:08:49 Reinflate Prox LAD KARRI RX 3.5 x 2 13 00:10 stent 22 stent balloon ([id number]) Device Usage Item Name Manufacture Quantity Catalog Number Hospital Part Current M inimal Lot# / Charge Number Stock Stock Serial# Code ACIST Syringe Acist 1 05594 713312 378526 326361 2 0 (52908) Medical Systems Inc Bag Decanter Microtek 1 851129 83143 389383 5 () Medical Inc. Medline Cath Cardinal 1 [id number] 154924 88966 678389 5 [facility] [employer]ood[employer] Inc. ([id number]) SHEATH 5FR Terumo 1 [id number] 385282 581557 069241 4 0 [place] (ZBE297) DIAGNOSTIC St Sergio 1 449146 744799 505530 211858 3 0 WIRE .035 260cm J wire (723987) ACIST Hand Acist 1 93049 353241 369446 473338 5 Control Medical (12273) Systems Inc ACIST Manifold Acist 1 14496 151698 070264 321397 5 (74526) Medical Systems Inc DIAGNOSTIC Cardinal 1 LS0862 215865 56287 512025 3 0 Multipack 5Fr Health catheter set (EX3935) Tegaderm 4 x 4 3M 1 1626W 529697 887147 818980 5 (1626W) PERCUTANEOUS Cook Medical 1 C56764 930530 859097 5 ENTRY 19GA needle MULTIPACK Cardinal 1 407647 5 Pigtail 5 Fr Health catheter MULTIPACK JL Cardinal 1 785765 5 4.0 5Fr Health catheter MULTIPACK 3DRC Cardinal 1 [id number] 5 5Fr catheter Health CHOICE PT [place] 1 [id number] 250081 464418 799274 5 Extra Support Scientific 182cm wire ([id number]) INFLATOR Merit Merit 1 [id number] 103424 533389 444971 1 5 [employer] Medical ([id number]) SHEATH 6Fr Merit 1 [id number] 637235 260019 414680 5 Prelude Medical ([id number]) [place] 1 88991H 581974 232009 663481 8 [place] IVUS Catheter (61680Z) KARRI RX 3.5 x Medtronic 1 [id number] 236683 6617072 937735 5 [id number] 22 stent ([id number]) EXOSEAL 6Fr Cardinal 1 EX600 455298 403458 518186 1 0 (EX600) Health Signature Audit Beeler Stage Time Signature Unsigned Intra-Procedure 06/22/2017 Lashanda Vasquez 12:16:52 PM RT(R) Signatures Monitor : Lashanda Vasquez Signature : RT Date : Time : [facility] [address] [place] [address]
[2017-06-22 10:31] VITALS: BP 143/84; Ht 182.9 cm; Wt 90.9 kg
[2017-06-22 11:31] LABS: BASOPHILS 0.2 % (0-2); EOSINOPHILS 1.4 % (0-7); HEMATOCRIT 44.4 % (42.0-54.0); HEMOGLOBIN 14.7 g/dL (13.5-17.5); IMMATURE GRANULOCYTES 0.4 % (0-5); LYMPHOCYTES 21.3 % (15-50); MCH 30.9 pg (26.0-34.0); MCHC 33.1 g/dL (31.0-37.0); MCV 93.5 fL (80.0-100.0); MEAN PLATELET VOLUME 10.7 fL (7.4-10.4); MONOCYTES 11.4 % (2-11); NEUTROPHILS 65.3 % (40-80); PLATELET COUNT 194 10x3/uL (130-400); RBC 4.75 10x6/uL (4.20-6.10); RDW 12.6 % (11.5-14.5); WBC 4.8 10x3/uL (4.8-10.8)
[2017-06-22 12:06] LABS: ANION GAP 12.3 mmol/L (8-16); CALCIUM 8.9 mg/dL (8.5-10.1); CARBON DIOXIDE 28.8 mmol/L (21.0-32.0); CREATININE - SERUM 1.1 mg/dL (0.6-1.3); POTASSIUM - SERUM 4.1 mmol/L (3.5-5.1)
== END 2017-06-22 17:09 | disposition home or self-care (01) ==
LOC: D.CATH 09:57
PROVIDERS: Internal Medicine Interventional Cardiology
DX: I25.119 Atherosclerotic heart disease of native coronary artery with unspecified angina pectoris (principal); Z95.1 Presence of aortocoronary bypass graft; Z01.812 Encounter for preprocedural laboratory examination
CPT/HCPCS: 93459; 92978; C9600

== ENCOUNTER 2017-07-10 05:36 | Emergency (ER) | payer MEDICARE, OTHER ==
[2017-06-22 10:31] VITALS: BMI 27.2
[2017-07-10 05:51] LABS: BASOPHILS 0.4 % (0-2); EOSINOPHILS 2.8 % (0-7); HEMATOCRIT 45.3 % (42.0-54.0); HEMOGLOBIN 15.5 g/dL (13.5-17.5); IMMATURE GRANULOCYTES 0.4 % (0-5); LYMPHOCYTES 30.5 % (15-50); MCH 31.6 pg (26.0-34.0); MCHC 34.2 g/dL (31.0-37.0); MCV 92.3 fL (80.0-100.0); MEAN PLATELET VOLUME 10.5 fL (7.4-10.4); NEUTROPHILS 55.9 % (40-80); PLATELET COUNT 195 10x3/uL (130-400); RBC 4.91 10x6/uL (4.20-6.10); RDW 12.2 % (11.5-14.5)
[2017-07-10 06:04] LABS: ALBUMIN 3.9 g/dL (3.4-5.0); ALKALINE PHOSPHATASE 111 U/L (46-116); ALT (SGPT) 43 U/L (10-68); CALC OSMOLALITY 275 mosm/kg (275-300); CALCIUM 9.4 mg/dL (8.5-10.1); CHLORIDE - SERUM 102 mmol/L (98-107); CREATININE - SERUM 1.2 mg/dL (0.6-1.3); GLUCOSE 120 mg/dL (74-106); POTASSIUM - SERUM 3.7 mmol/L (3.5-5.1); PROTEIN - SERUM 7.2 g/dL (6.4-8.2); SODIUM 137 mmol/L (136-145); UREA NITROGEN 15 mg/dL (7-18); eGFR NON AFRICAN AMERICAN 64 mL/min (90-120)
[2017-07-10 06:19] LABS: CHOL - HDL RATIO 3.8 ratio (2.3-4.9); CHOLESTEROL, TOTAL 222 mg/dL (0-200); CKMB 0.8 U/L (0.0-3.6); CREATINE KINASE 93 UL (21-232); HDL CHOLESTEROL 58 mg/dL (32-96); PRO BNP 42 pg/mL (0-125); TRIGLYCERIDE 425 mg/dL (30-200); TROPONIN-I < 0.017 ng/mL (0.000-0.060)
== END 2017-07-10 06:50 | disposition home or self-care (01) ==
LOC: D.ER 05:36
PROVIDERS: Family Medicine
DX: R07.89 Other chest pain (principal)

== ENCOUNTER 2017-11-11 08:29 | Outpatient (CLI) | payer MEDICARE, OTHER ==
[~2017-11-11] VITALS: Ht 182.9 cm; Wt 90.9 kg
--- NOTE | ~2017-11-11 | HEMODYNAMI ---
PATIENT:MARIE JOHNSON MEDICAL RECORD: [id number] : 52 LOCATION:[facility] ADMISSION DATE: 11/11/17 Generatedon:11/11/201711:34 Patient name: MARIE JOHNSON Patient #: [id number] SSN: : 1950 Date of study: 11/11/2017 Page: Of Hemodynamic Procedure Report Patient Data Patient Demographics Procedure consent was obtained First Name: MARIE Gender: Male Last Name: ALEX : 1950 Middle Initial: RAY Age: 67 year(s) Patient #: [id number] Race: Additional ID: [id number] Contact details [address]: [address] [place] [address] State: [place] City: [place] Zip code: [address] Past Medical History Allergies: No known allergies Admission Admission Data Admission Date: 11/11/2017 Admission Time: 8:29 Weight (lbs.): 200.4 Weight (kg.): 90.9 Lab Results Lab Result Date: 11/11/2017 Lab Result Time: 9:04 Biochemistry Name Units Result Min Max BUN mg/dl 12 --(-*--)-- 7 18 Creatinine mg/dl 1 --(--*-)-- 0.6 1.3 CBC Name Units Result Min Max Hematocrit % 45.7 --(-*--)-- 42 54 Hemoglobin g/dl 15.5 --(-*--)-- 13.5 17.5 Procedure Procedure Types Cath Procedure Diagnostic Procedure LHC LHC w/Coronaries w/Grafts Procedure Description Procedure Date Procedure Date: 11/11/2017 Procedure Start Time: 11:22 Procedure End Time: 11:33 Procedure Staff Name Function Kevon Adames MD Performing Physician Shahbaz Byrne RT Senior Sales Operations Manager Al Mclain RT Monitor Pipo Sterling RT Scrub Celso Tejada RN Nurse Procedure Data Cath Procedure Fluoroscopy Diagnostic fluoroscopy Total fluoroscopy Time: 0.8 time: 0.8 min min Diagnostic fluoroscopy Total fluoroscopy dose: dose: 284.14 mGy 284.14 mGy Contrast Material Contrast Material Type Amount (ml) Isovue 300 65 Entry Location Entry Primary Successful Side Size Upsize Upsize Entry Closure Succes sful Closure Location (Fr) 1 (Fr) 2 (Fr) Remarks Device Remarks Femoral Right 5 Fr Exoseal artery Estimated blood loss: 5 ml Diagnostic catheters Device Type Used For End Catheter Placement MULTIPACK Pigtail 5 Fr Procedure catheter MULTIPACK JL 4.0 5Fr Procedure catheter DIAGNOSTIC AR 2 MOD 5 Fr Procedure catheter ([id number]) Procedure Complications No complications Procedure Medications Medication Administration Route Dosage Oxygen etCO2 Nasal cannula 2 l/min Lidocaine 2% added to field 20 Heparin Flush Bag added to field 2 bags (1000units/500ml NS) 0.9% NaCl I.V. 100 ml/hr Versed I.V. 2 mg Fentanyl I.V. 100 mcg Versed I.V. 2 mg Fentanyl I.V. 100 mcg Versed I.V. 0.5 mg Fentanyl I.V. 25 mcg Hemodynamics Rest HGB: 15.5 (g/dl) Heart Rate: 66 (bpm) Snapshots Pre Cath Intra NCS Post Cath Vital Signs Time Heart Resp SPO2 etCO2 NIBP (mmHg) Rhythm Pain Sedation Rate (ipm) (%) (mmHg) Status Level (bpm) 10:41:34 117 22 94 0 140/86(116) NSR 0 (11) 10(A) , No pain 10:45:54 68 13 100 33.7 137/86(113) NSR 0 (11) 10(A) , No pain 10:50:16 77 14 97 26.2 129/87(106) NSR 0 (11) 10(A) , No pain 10:54:36 74 14 100 33 131/84(112) NSR 0 (11) 10(A) , No pain 10:58:55 77 18 96 29.2 121/76(116) NSR 0 (11) 10(A) , No pain 11:03:10 74 17 97 39.7 124/75(107) NSR 0 (11) 10(A) , No pain 11:07:29 76 15 97 0 119/78(94) NSR 0 (11) 10(A) , No pain 11:11:44 82 17 97 39 116/78(92) NSR 0 (11) 10(A) , No pain 11:16:00 74 12 98 46.5 122/75(98) NSR 0 (11) 10(A) , No pain 11:20:12 77 15 96 38.2 122/84(107) NSR 0 (11) 10(A) , No pain 11:24:26 90 16 97 18 114/87(105) NSR 0 (11) 9(A) , No pain 11:28:40 85 16 97 43.5 130/82(103) NSR 0 (11) 9(A) , No pain 11:31:53 94 18 95 31.5 125/85(103) NSR 0 (11) 10(A) , No pain Medications Time Medication Route Dose Verified Delivered Reason Notes Eff ectiveness by by 10:55:36 Oxygen etCO2 2 Kevon Buffie used for Nasal l/min Rosangela Tejada RN procedure cannula 10:55:47 Lidocaine 2% added 20ml Kevon Kevon for local to vial Rosangela Adames MD anesthetic field 10:55:53 Heparin Flush added 2 Kevon Kevon used for Bag to bags Rosangela Adames MD procedure (1000units/500ml field NS) 10:56:01 0.9% NaCl I.V. 100 Kevon Buffie Per ml/hr Rosangela Tejada RN physician 11:20:40 Versed I.V. 2 mg Kevon Buffie for Rosangela Tejada RN sedation 11:20:46 Fentanyl I.V. 100 Kevon Buffie for mcg Rosangela Tejada RN sedation 11:25:43 Versed I.V. 2 mg Kevonmireya Bessie for Rosangela Tejada RN sedation 11:25:47 Fentanyl I.V. 100 Kevon Bessie for mcg Rosangela Tejada RN sedation 11:27:00 Fentanyl I.V. 25 Kevon Buffie for mcg Rosangela Tejada RN sedation 11:27:55 Versed I.V. 0.5 Kevon Buffie for mg Rosangela Tejada RN sedation Procedure Log Time Note 10:30:23 Shahbaz Byrne RT(R) sent for patient. Start room use. 10:30:24 Time tracking: Regular hours (M-F 7:00 - 5:00) 10:30:28 Plan of Care:Hemodynamics will remain stable., Cardiac rhythm will remain stable., Comfort level will be maintained., Respiratory function will remain adequate., Patient/ family verbilizes understanding of procedure., Procedure tolerated without complication., Recovers from procedure without complications.. 10:36:13 Patient received from Pre/Post Procedure Room to CCL 3 Alert and oriented. Tansferred to table in Supine position. 10:36:14 Warm blankets applied, and mckenzie hugger turned on for patient comfort. 10:36:15 Correct patient and procedure confirmed by team. 10:36:17 Signed procedure consent form obtained from patient. 10:36:18 ECG and BP/O2 sat monitors applied to patient. 10:36:19 Vital chart was started 10:43:20 Baseline sample Acquired. 10:43:24 Rhythm: sinus rhythm 10:43:26 Full Disclosure recording started 10:43:33 H&P Date Dictated: 11/08/2017 Within 30 days and on chart., H&P Addendum completed by physician on day of procedure. (MUST COMPLETE FOR ALL OUTPATIENTS). 10:43:34 Pre-procedure instructions explained to patient. 10:43:34 Pre-op teaching completed and patient verbalized understanding. 10:43:35 Family in waiting room. 10:43:37 Patient NPO since Midnight. 10:43:42 Patient allergic to No known allergies 10:43:45 Is the patient allergic to Iodine/contrast media? No. 10:43:47 Is patient on blood thinner?Yes 10:43:49 ACC The patient was administered the following blood thiners within the last 24 hours: ACCPlavix 10:43:51 Patient diabetic? No. 10:43:56 Previous problem with sedation/anesthesia? No ? 10:43:58 Snore? Yes 10:43:59 Sleep apnea? No 10:44:00 Deviated septum? No 10:44:00 Opens mouth fully? Yes 10:44:01 Sticks out tongue? Yes 10:44:03 Airway obstruction? No ? 10:44:05 Dentures? No ? 10:44:08 Pre procedure: right dorsailis pedis pulse 2+ Normal; easily identifiable; not easily obliterated 10:44:09 Patient pain scale 0/10 ?. 10:44:21 IV patent on arrival in left antecubital with 0.9% NaCl at [facility] 10:44:54 Lab Result : BUN 12 mg/dl : Lab Result : Creatinine 1 mg/dl : Lab Result : Hemoglobin 15.5 g/dl : Lab Result : Hematocrit 45.7 % :: Lab results completed and on chart. ::59 Right groin area was prepped with chlora-prep and draped in sterile fashion :: Alarms reviewed by R. N. 10:45:00 Sharps counted by scrub and verified by R.N. 10:45:02 Use device set Femoral Dx 10:45:03 ACIST Syringe (35649) opened to sterile field. 10:45:03 Bag Decanter (2002S) opened to sterile field. 10:45:04 Medline Cath Pack ([id number]) opened to sterile field. 10:45:05 ACIST Hand Control (54758) opened to sterile field. 10:45:05 ACIST Manifold (66491) opened to sterile field. 10:45:06 Tegaderm 4 x 4 (1626W) opened to sterile field. 10:45:07 SHEATH Prelude 5Fr 0.035 (IYL-7J-25-035) opened to sterile field. 10:45:08 DIAGNOSTIC Multipack 5Fr catheter set ([id number]) opened to sterile field. 10:45:09 DIAGNOSTIC WIRE .035 260cm J wire (370317) opened to sterile field. 10:55:02 Patient Weight : 200.4 lbs 10:55:36 Oxygen 2 l/min etCO2 Nasal cannula was administered by Celso Tejada RN; used for procedure; 10:55:47 Lidocaine 2% 20ml vial added to field was administered by Kevon Adames MD; for local anesthetic; 10:55:53 Heparin Flush Bag (1000units/500ml NS) 2 bags added to field was administered by Kevon Adames MD; used for procedure; 10:56:01 0.9% NaCl 100 ml/hr I.V. was administered by Celso Tejada RN; Per physician; 11:20:25 Physician arrived 11:20:25 --------ALL STOP TIME OUT------ 11:20:26 Final Timeout: patient, procedure, and site verified with staff and physician. All members of the team are in agreement. 11:20:29 Right groin site verified by team. 11:20:31 Physical assessment completed. ASA score P 2 - A patient with mild systemic disease as per Kevon Adames MD. 11::34 Sedation plan: IV Moderate Sedation Medication:Versed, Fentanyl 11:20:40 Versed 2 mg I.V. was administered by Celso Tejada RN; for sedation; 11:20:46 Fentanyl 100 mcg I.V. was administered by Celso Tejada RN; for sedation; 11::21 Procedure started. 11:22:32 Local anesthetic to left femerol artery with Lidocaine 2% by Kevon Adames MD.INITIAL ACCESS ONLY 11:23:00 A 5 Fr sheath was inserted into the Right Femoral artery 11::58 A MULTIPACK Pigtail 5 Fr catheter was advanced over the wire and used for Procedure. 11:24:13 LV gram done using ARMSTRONG 11:24:15 Injector settings: Ml/sec: 10, Volume: 20, 11:24:17 LV hemodynamics recorded. 11:24:21 EF : 55 % 11:24:24 Catheter exchanged over wire. 11:24:30 A MULTIPACK JL 4.0 5Fr catheter was advanced over the wire and used for Procedure. 11:24:34 LCA angiography performed. 11:25:14 Catheter exchanged over wire. 11:25:35 A DIAGNOSTIC AR 2 MOD 5 Fr catheter ([id number]) was advanced over the wire and used for Procedure. 11:25:43 Versed 2 mg I.V. was administered by Celso Tejada RN; for sedation; 11::47 Fentanyl 100 mcg I.V. was administered by Celso Tejada RN; for sedation; 11:26:03 SVG to RCA angiography performed. 11:26:57 Catheter removed. 11:26:59 EXOSEAL 5Fr (EX500) opened to sterile field. 11:27:00 Fentanyl 25 mcg I.V. was administered by Celso Tejada RN; for sedation; 11:27:55 Versed 0.5 mg I.V. was administered by Celso Tejada RN; for sedation; 11:30:00 Sheath removed intact; hemostasis achieved with Exoseal to the Right Femoral artery. 11:30:02 Procedure ended.(Physican Out) 11:30:18 Fluoroscopy time 00.80 minutes. 11:30:27 Flurop Dose total: 284.14 11:30:27 Fluoroscopy dose: 284.14 mGy 11:30:36 Contrast amount:Isovue 300 65ml. 11:30:37 Sharps counted by scrub and verified by R.N. 11:30:39 Insertion/operative site no bleeding no hematoma. 11:30:42 Post-op/insertion site Right Femoral artery dressed using a 4 x 4 and Tegaderm. 11:30:45 Post right femoral artery:stable, soft, clean and dry 11:30:58 Post Procedure Pulses reassessed and unchanged 11:31:01 Post-procedure physical assessment completed. ASA score P 2 - A patient with mild systemic disease as per Kevon Adames MD. 11:31:03 Post procedure rhythm: unchanged. 11:31:13 Estimated blood loss: 5 ml 11:31:14 Post procedure instruction explained to patient.Patient verbalizes understanding. 11:31:15 Patient needs reinforcement of post procedure teaching. 11:31:36 Procedure type changed to Cath procedure, Diagnostic procedure, LHC, LHC w/Coronaries w/Grafts 11:32:48 Procedure and supply charges have been captured, reviewed, submitted and are correct. 11:32:51 Procedure Complication : No complications 11:32:55 Vital chart was stopped 11:32:56 See physician's report for complete and final results. 11:32:57 Report given to Pre/Post Procedure Room. 11:33:00 Patient transfered to Pre/Post Procedure Room with Stretcher. 11:33:02 Procedure ended. 11:33:02 Full Disclosure recording stopped 11:33:06 End room use (Document Last) Device Usage Item Name Manufacture Quantity Catalog Number Hospital Part Current M inimal Lot# / Charge Number Stock Stock Serial# Code ACIST Syringe Acist 1 76132 102065 361133 726980 2 0 (32882) [employer] Bag Decanter Microtek 1 907322 97799 610430 5 () Medical Inc. Medline Cath Cardinal 1 [id number] 656223 88399 893136 5 Pack Health ([id number]) ACIST Hand Acist 1 89927 129898 897206 533340 5 Control (11249) [employer] Inc ACIST Manifold Acist 1 98447 257591 527868 120932 5 (92234) [employer] Inc Tegaderm 4 x 4 3M 1 1626W 979820 479931 557765 5 (1626W) SHEATH Prelude Merit 1 CBC-7T-38-035 346440 157128 734368 5 5Fr 0.035 Medical ([id number]-7J-06035) DIAGNOSTIC Cardinal 1 [id number] 289378 24334 816253 3 0 Multipack 5Fr Health catheter set (BP9065) DIAGNOSTIC WIRE St Sergio 1 070535 294380 240695 026897 3 0 .035 260cm J wire (228885) MULTIPACK Cardinal 1 875933 5 Pigtail 5 Fr Health catheter MULTIPACK JL Cardinal 1 112339 5 4.0 5Fr Health catheter DIAGNOSTIC AR 2 Cardinal 1 [id number] 370106 065959 173755 2 0 MOD 5 Fr Health catheter (426366N) EXOSEAL 5Fr Cardinal 1 EX500 690890 091214 978589 1 0 (EX500) Health Signature Audit [place] Stage Time Signature Unsigned Intra-Procedure 11/11/2017 Al Mclain 11:34:08 AM RT(R) Signatures Monitor : Al Mclain RT Signature : Date : Time : [address] [place] [address]
--- NOTE | ~2017-11-11 | OP ---
PATIENT NAME: MARIE JOHNSON MEDICAL RECORD: [id number] :52 LOCATION:D.CAT ADMISSION DATE: SURGEON: DOUG URBINA MD DATE OF OPERATION: 11/11/2017 DATE OF SERVICE: 11/11/2017 PROCEDURES: 1. Left heart catheterization. 2. Selective coronary angiography. 3. Left ventriculogram. 4. Vein graft angiography. INDICATION: Angina and coronary artery disease. PROCEDURE PERFORMED: After informed consent was obtained and after detailed description of risks, benefits as well as alternative therapies, the patient elected to proceed with angiogram and heart catheterization. The right femoral area was prepped and draped in normal sterile fashion. Right femoral artery was cannulated via modified Seldinger technique with placement of 5-Irish sheath. All catheters exchanged through this sheath. FINDINGS: Left ventriculogram was performed in standard 30-degree ARMSTRONG view, reveals good cardiac wall motion throughout all segments. Overall ejection fraction is 55%. SELECTIVE CORONARY ANGIOGRAPHY: 1. Left main is with no significant angiographic disease. 2. Left anterior descending has previously placed stents, these are widely patent with no significant restenosis. No disease elsewise of the LAD or its branches. 3. Left circumflex has mild irregularities, but no flow-limiting stenosis. 4. Right coronary is totally occluded. 5. Vein graft to the right coronary is widely patent in a skipped fashion to 2 branches of the right coronary. OVERALL IMPRESSION: Wide patency of the vein graft to the right coronary, wide patency of the stent on the left. Continue medical management of the coronary artery disease and cardiac risk factors. TRANSINT:[id number] Voice Confirmation ID: [id number] DOCUMENT ID: [id number] DOUG URBINA MD at 1949 CC: [id number] DICTATION DATE: 11/11/17 1130 BRICKMASON SUPERVISOR: 11/11/17 1151 [facility] CLI 11/11/17 [place] [id number] [place] [address]
[2017-11-11 08:51] VITALS: BP 150/79; Ht 182.9 cm; Wt 90.9 kg
[2017-11-11 09:24] LABS: CALC OSMOLALITY 278 mosm/kg (275-300); CALCIUM 8.4 mg/dL (8.5-10.1); CARBON DIOXIDE 27.1 mmol/L (21.0-32.0); CHLORIDE - SERUM 105 mmol/L (98-107); GLUCOSE 110 mg/dL (74-106); POTASSIUM - SERUM 4.2 mmol/L (3.5-5.1); SODIUM 139 mmol/L (136-145); UREA NITROGEN 12 mg/dL (7-18); eGFR NON AFRICAN AMERICAN 79 mL/min (90-120)
[2017-11-11 09:38] LABS: HEMATOCRIT 45.7 % (42.0-54.0); HEMOGLOBIN 15.5 g/dL (13.5-17.5); LYMPHOCYTES 17.6 % (15-50); MCH 30.8 pg (26.0-34.0); MCHC 33.9 g/dL (31.0-37.0); MCV 90.7 fL (80.0-100.0); MEAN PLATELET VOLUME 10.1 fL (7.4-10.4); NEUTROPHILS 70.9 % (40-80); PLATELET COUNT 178 10x3/uL (130-400); RBC 5.04 10x6/uL (4.20-6.10); RDW 12.3 % (11.5-14.5); WBC 5.3 10x3/uL (4.8-10.8)
== END 2017-11-11 13:53 | disposition home or self-care (01) ==
LOC: D.CATH 08:29
PROVIDERS: Internal Medicine Interventional Cardiology
DX: I25.119 Atherosclerotic heart disease of native coronary artery with unspecified angina pectoris (principal); Z95.1 Presence of aortocoronary bypass graft; Z95.5 Presence of coronary angioplasty implant and graft; Z01.812 Encounter for preprocedural laboratory examination

== ENCOUNTER → 2017-11-21 10:57 | Outpatient (CLI) | payer MEDICARE, OTHER ==
[2017-11-11 08:51] VITALS: BMI 27.2
== END | disposition home or self-care (01) ==
LOC: D.RT 10:57
DX: R06.02 Shortness of breath (principal)

== ENCOUNTER 2019-01-31 08:33 | Outpatient (CLI) | payer MEDICARE, OTHER ==
[~2019-01-31] VITALS: Ht 182.9 cm; Wt 95.5 kg
--- NOTE | ~2019-01-31 | HEMODYNAMI ---
PATIENT:MARIE JOHNSON MEDICAL RECORD: [id number] : 52 LOCATION:[facility] ADMISSION DATE: 01/31/19 Generatedon:01/31/201911:05 Patient name: MARIE JOHNSON Patient #: [id number] SSN: [id number] : 1950 Date of study: 01/31/2019 Page: Of Hemodynamic Procedure Report Patient Data Patient Demographics Procedure consent was obtained First Name: MARIE Gender: Male Last Name: ALEX : 1950 Middle Initial: RAY Age: 68 year(s) Patient #: [id number] Race: SSN: [id number] Additional ID: [id number] Contact details Address: [address] [place] [address] State: [place] City: [place] Zip code: [address] Past Medical History Allergies: No known allergies Admission Admission Data Admission Date: 01/31/2019 Admission Time: 8:33 Arrival Date: 01/31/2019 Arrival Time: 0:00 Admit Source: Other Insurance Payor: Medicare, Private health insurance [facility] #: [id number] Height (in.): 71.65 BSA: 2.16 (m2) Height (cm.): 182 BMI: 28.68 (kg/m2) Weight (lbs.): 209.44 Weight (kg.): 95 Lab Results Lab Result Date: 01/31/2019 Lab Result Time: 0:00 Biochemistry Name Units Result Min Max BUN mg/dl 15 --(--*-)-- 7 18 Creatinine mg/dl 1 --(--*-)-- 0.6 1.3 CBC Name Units Result Min Max Hemoglobin g/dl 16.1 --(--*-)-- 13.5 17.5 Procedure Procedure Types Cath Procedure Diagnostic Procedure LHC LHC w/Coronaries FFR/IVUS FFR Initial Sedation Charges Moderate Sedation up to 30 minutes Procedure Description Procedure Date Procedure Date: 01/31/2019 Procedure Start Time: 10:46 Procedure End Time: 11:02 Procedure Staff Name Function Kevon Adames MD Performing Physician Lashanda Vasquez RT Monitor Celso Tejada RN Nurse Shahbaz Byrne RT Scrub Indication Chest pain Procedure Data Cath Procedure Fluoroscopy Diagnostic fluoroscopy Total fluoroscopy Time: 3.4 time: 3.4 min min Diagnostic fluoroscopy Total fluoroscopy dose: 527 dose: 527 mGy mGy Contrast Material Contrast Material Type Amount (ml) Isovue 370 82 Entry Location Entry Primary Successful Side Size Upsize Upsize Entry Closure Succes sful Closure Location (Fr) 1 (Fr) 2 (Fr) Remarks Device Remarks Femoral Right 5 Fr 6 Fr Exoseal artery Short Estimated blood loss: 5 ml Diagnostic catheters Device Type Used For End Catheter Placement MULTIPACK Pigtail 5 Fr Procedure catheter MULTIPACK JL 4.0 5Fr Procedure catheter DIAGNOSTIC AR MOD 5Fr Procedure Catheter ([id number]) Procedure Complications No complications Procedure Medications Medication Administration Route Dosage Oxygen etCO2 Nasal cannula 2 l/min Lidocaine 2% added to field 20 Heparin Flush Bag added to field 2 bags (1000units/500ml NS) 0.9% NaCl I.V. 100 ml/hr Versed I.V. 2 mg Fentanyl I.V. 100 mcg Versed I.V. 1 mg Fentanyl I.V. 25 mcg Versed I.V. 1 mg Hemodynamics Rest BSA: 2.16 (m2) HGB: 16.1 (g/dl) O2 Consumption: Estimated: 245.1 (ml/min) O2 Con sumption indexed: Estimated:113.47 (ml/min/m) Heart Rate: 63 (bpm) Snapshots Pre Cath Intra NCS Post Cath Vital Signs Time Heart Resp SPO2 etCO2 NIBP Rhythm Pain Sedation Rate (ipm) (%) (mmHg) (mmHg) Status Level (bpm) 10:30:25 64 18 98 0 126/79(91) NSR 0 (11) 10(A) , No pain 10:34:39 73 16 97 0 124/77(92) NSR 0 (11) 10(A) , No pain 10:38:51 61 14 97 37.7 117/71(86) NSR 0 (11) 10(A) , No pain 10:43:03 74 14 96 40.7 114/69(87) NSR 0 (11) 10(A) , No pain 10:47:11 69 13 93 39.2 111/73(92) NSR 0 (11) 10(A) , No pain 10:51:19 83 14 95 21.1 118/77(97) NSR 0 (11) 9(A) , No pain 10:55:26 77 13 96 37 110/82(95) NSR 0 (11) 9(A) , No pain 10:59:36 80 12 96 39.2 116/70(97) NSR 0 (11) 10(A) , No pain Medications Time Medication Route Dose Verified Delivered Reason Notes Eff ectiveness by by 10:30:15 Oxygen etCO2 2 Kevon Buffie used for Nasal l/min Rosangela Tejada RN procedure cannula 10:30:23 Lidocaine 2% added 20ml Kevon Kevon for local to vial Rosangela Adames MD anesthetic field 10:30:29 Heparin Flush added 2 Kevon Kevon used for Bag to bags Rosangela Adames MD procedure (1000units/500ml field NS) 10:30:38 0.9% NaCl I.V. 100 Kevon [place] Per ml/hr Rosangela Tejada RN physician 10:44:22 Versed I.V. 2 mg Kevon [place] for Rosangela Tejada RN sedation 10:44:28 Fentanyl I.V. 100 Kevon Bessie for guillaume Tejada RN sedation 10:53:57 Versed I.V. 1 mg Kevon [place] for Rosangela Tejada RN sedation 10:54:09 Fentanyl I.V. 25 Ekvonmireya Bessie for guillaume Tejada RN sedation 10:57:05 Versed I.V. 1 mg Kevon [place] for Rosangela Tejada RN sedation Procedure Log Time Note 10:26:26 Patient Height : 71.65 inches 10:26:30 Patient Weight : 209.44 lbs 10:26:41 Insurance Payor : Private health insurance, Medicare 10:26:55 Arrival Date: 01/31/2019 12:00:00 AM 10:27:24 Admit Source: Other 10:27:53 Lab Result : Hemoglobin 16.1 g/dl 10:27:53 Lab Result : Creatinine 1 mg/dl 10:27:53 Lab Result : BUN 15 mg/dl 10:28:09 Diagnostic Cath Status : Elective 10:28:32 Indication : Chest pain 10:28:40 Procedure Status Elective Heart Cath (OP). 10:28:51 Shahbaz Byrne RT(R) sent for patient. Start room use. 10::52 Time tracking: Regular hours (M-F 7:00 - 5:00) 10:28:58 Plan of Care:Hemodynamics will remain stable., Cardiac rhythm will remain stable., Comfort level will be maintained., Respiratory function will remain adequate., Patient/ family verbilizes understanding of procedure., Procedure tolerated without complication., Recovers from procedure without complications.. 10:29:04 Patient received from Pre/Post Procedure Room to CCL 1 Alert and oriented. Tansferred to table in Supine position. 10:29:16 Signed procedure consent form obtained from patient. 10:29:18 Warm blankets applied, and mckenzie hugger turned on for patient comfort. 10:29:19 Correct patient and procedure confirmed by team. 10:29:19 ECG and BP/O2 sat monitors applied to patient. 10:29:23 Vital chart was started 10:29:26 Baseline sample Acquired. 10:29:29 Rhythm: sinus rhythm 10::30 Full Disclosure recording started 10:29:46 Family in waiting room. 10:29:48 Patient NPO since Midnight. 10::58 Patient allergic to No known allergies 10:30:01 Is the patient allergic to Iodine/contrast media? No. 10:30:03 Was the patient premedicated? Yes 10:30:12 Is patient on blood thinner?No 10:30:15 Oxygen 2 l/min etCO2 Nasal cannula was administered by Celso Tejada RN; used for procedure; Verbal order read back and verified. 10:30:15 Patient diabetic? No. 10:30:20 Snore? Yes 10:30:22 Sleep apnea? No 10:30:23 Lidocaine 2% 20ml vial added to field was administered by Kevon Adames MD; for local anesthetic; Verbal order read back and verified. 10:30:26 Dentures? No ? 10:30:29 Heparin Flush Bag (1000units/500ml NS) 2 bags added to field was administered by Kevon Adames MD; used for procedure; Verbal order read back and verified. 10:30:35 Patient pain scale 0/10 ?. 10:30:38 0.9% NaCl 100 ml/hr I.V. was administered by Celso Tejada RN; Per physician; Verbal order read back and verified. 10:30:44 IV patent on arrival in left forearm with 0.9% NaCl at KVO. 10:30:49 Lab results completed and on chart. 10:31:03 Right groin area was prepped with chlora-prep and draped in sterile fashion 10:31:04 Alarms reviewed by R. N. 10:31:04 Sharps counted by scrub and verified by R.N. 10:38:54 2) 60-89 Mildly reduced kidney function, and other findings (as for stage 1) point to kidney disease. 10:43:18 Maximum allowable contrast dose (3.7 X eGFR X 0.75)219 ml. 10:43:27 Stress Test: no; N/A ? 10:43:33 Risk of Mortality: .3 10:43:38 Risk of blood transfusion: 1.7 10:43:42 Risk of LIBORIO: 6.1 10:43:45 Physician arrived 10:43:45 --------ALL STOP TIME OUT------ 10:43:46 Final Timeout: patient, procedure, and site verified with staff and physician. All members of the team are in agreement. 10:43:48 Right groin site verified by team. 10:43:53 Fire Safety Assessment: A--An alcohol-based skin anteseptic being used preoperatively., C--Open oxygen or nitrous oxide is being used., D--An ESU, laser, or fiber-optic light is being used. 10:43:58 Physical assessment completed. ASA score P 3 - A patient with severe systemic disease as per Kevon Adames MD. 10:44:04 Sedation plan: IV Moderate Sedation Medication:Versed, Fentanyl 10:44:22 Versed 2 mg I.V. was administered by Celso Tejada RN; for sedation; Verbal order read back and verified. 10:44:27 Zero performed for pressure channel P1 10:44:28 Fentanyl 100 mcg I.V. was administered by Celso Tejada RN; for sedation; Verbal order read back and verified. 10:46:40 Procedure started. 10:46:47 Use device set Femoral Dx 10:46:52 Local anesthetic to right femoral artery with Lidocaine 2% by Kevon Adames MD.INITIAL ACCESS ONLY 10:46:57 ACIST Syringe (01818) opened to sterile field. 10:46:57 Bag Decanter (2001S) opened to sterile field. 10:46:58 Medline Cath Pack ([id number]) opened to sterile field. 10:46:59 ACIST Hand Control (13533) opened to sterile field. 10:46:59 ACIST Manifold (76043) opened to sterile field. 10:47:01 DIAGNOSTIC Multipack 5Fr catheter set (ZY4323) opened to sterile field. 10:47:06 SHEATH 5FR [place] (FER818) opened to sterile field. 10:47:06 EMERALD Guide Wire (502-445) opened to sterile field. 10:47:08 Tegaderm 4 x 4 (1626W) opened to sterile field. 10:47:18 A 5 Fr sheath was inserted into the Right Femoral artery 10:47:33 A MULTIPACK Pigtail 5 Fr catheter was advanced over the wire and used for Procedure. 10:47:48 LV angiography performed. 10:47:52 LV gram done using ARMSTRONG 10:48:02 EF : 55 % 10:48:04 Catheter removed. 10:48:20 A MULTIPACK JL 4.0 5Fr catheter was advanced over the wire and used for Procedure. 10:48:23 LCA angiography performed. 10:50:59 A DIAGNOSTIC AR MOD 5Fr Catheter ([id number]) was advanced over the wire and used for Procedure. 10:51:01 RCA angiography performed. 10:51:14 SVG to RCA angiography performed. 10:51:27 Catheter removed. 10:51:40 SHEATH 6FR [place] (TUK672) opened to sterile field. 10:51:40 INFLATOR Merit BasixCompak (CE3018) opened to sterile field. 10:51:53 [place] Verrata Plus pressure wire (34422K) opened to sterile field. 10:52:06 Sheath upsized to a 6 Fr Short. 10:53:35 GUIDE 6FR XBLAD 3.5 catheter ([id number]) opened to sterile field. 10:53:52 6 Fr XBLAD guide catheter was inserted over the wire 10:53:56 IFR wire advanced. 10:53:57 Versed 1 mg I.V. was administered by Buffie Tejada RN; for sedation; Verbal order read back and verified. 10:54:09 Fentanyl 25 mcg I.V. was administered by Celso Tejada RN; for sedation; Verbal order read back and verified. 10:54:24 Wire advanced across lesion. 10:55:32 mLAD lesion measured at .92 with IFR 10:56:28 Guide catheter removed. 10:56:40 GUIDE 6FR AR 2.0 catheter (PI9NP12) opened to sterile field. 10:56:48 6 Fr ar2 guide catheter was inserted over the wire 10:57:00 IFR wire advanced. 10:57:05 Versed 1 mg I.V. was administered by Celso Tejada RN; for sedation; Verbal order read back and verified. 10:57:52 Wire advanced across lesion. 10:58:23 mRCA lesion measured at .91 with IFR 10:58:55 Wire removed. 10:58:55 Guide catheter removed. 10:59:04 EXOSEAL 6Fr (EX600) opened to sterile field. 10:59:31 Sheath removed intact; hemostasis achieved with Exoseal to the Right Femoral artery. 10:59:34 Procedure ended.(Physican Out) 10:59:59 Fluoroscopy time 03.40 minutes. 11:00:03 Flurop Dose total: 527 11:00:03 Fluoroscopy dose: 527 mGy 11:00:10 Dose Area Product 65064 mGy/cm. 11:00:22 Contrast amount:Isovue 370 82ml. 11:00:30 Maximum allowable dose exceeded? No. 11:00:33 Insertion/operative site no bleeding no hematoma. 11:00:44 Post right femoral artery:stable 11:01:00 Estimated blood loss: 5 ml 11:01:05 Post procedure instruction explained to patient.Patient verbalizes understanding. 11:02:04 Procedure type changed to Cath procedure, Diagnostic procedure, C, [facility] w/Coronaries, FFR/IVUS, FFR Initial, Sedation Charges, Moderate Sedation up to 30 minutes 11:02:06 Procedure and supply charges have been captured, reviewed, submitted and are correct. 11:02:39 Procedure Complication : No complications 11:02:42 Vital chart was stopped 11:02:45 [facility] Findings: mild to moderate CAD (<70%) 11:02:47 Operative report dictated upon procedure completion. 11:02:50 Report given to Pre/Post Procedure Room. 11:02:55 Patient transfered to Pre/Post Procedure Room with Stretcher. 11:02:57 Procedure ended. 11:02:57 Full Disclosure recording stopped 11:03:00 End room use (Document Last) Device Usage Item Name Manufacture Quantity Catalog Hospital Part Current Minima l Lot# / Number Charge Number Stock Stock Serial# Code ACIST Acist 1 59146 213407 201649 [id number] 20 Syringe Medical (43527) Systems Inc Bag Microtek 1 214391 77662 567603 5 Decanter Medical Inc. () Medline Medline 1 [id number] 987479 09787 807837 5 Cath Pack ([id number]) ACIST Hand Acist 1 40127 307789 288912 931345 5 Control Medical (36124) Systems Inc ACIST Acist 1 85481 366914 435785 502665 5 Manifold Medical (85595) Systems Inc DIAGNOSTIC Cardinal 1 TH3932 656356 36246 862125 30 Multipack Health 5Fr catheter set (VX7391) SHEATH 5FR Terumo 1 XZN767 416634 383919 402421 5 [place] (HJC438) EMERALD Cardinal 1 502-455 737844 302479 891878 5 Guide Wire Health (502-455) Tegaderm 4 3M 1 1626W 494923 972026 252704 5 x 4 (1626W) MULTIPACK Cardinal 1 [id number] 5 Pigtail 5 Health Fr catheter MULTIPACK Cardinal 1 178599 5 JL 4.0 5Fr Health catheter DIAGNOSTIC Cardinal 1 [id number] 588400 003094 111449 15 AR MOD 5Fr Health Catheter (089125P) SHEATH 6FR Terumo 1 TYY484 573913 584854 156169 40 [place] (KDB631) INFLATOR Merit 1 UC0043 183955 617728 200483 15 Ultrasound Medical Devices Medical BasixCompak (FU1548) [place] 1 55230W 959647 [id number] 305428 5 Verrata Plus pressure wire (90163O) GUIDE 6FR Cardinal 1 [id number] 152317 423031 053706 10 XBLAD 3.5 Health catheter ([id number]) GUIDE 6FR Medtronic 1 [id number] 149608 59451 328547 1 AR 2.0 catheter (BG3PH29) EXOSEAL 6Fr Cardinal 1 EX600 061272 803484 096765 10 (EX600) Health Signature Audit [place] Stage Time Signature Unsigned Intra-Procedure 01/31/2019 Lashanda Vasquez 11:04:19 AM RT(R) Intra-Procedure 01/31/2019 Kevon Adames 11:04:44 AM Intra-Procedure 01/31/2019 Kevon Adames 11:05:12 AM [place] [id number] [place] [id number]
[2019-01-31] MEDS ORDERED: ISOSORBIDE DINI30 MG PO (08:44)
[2019-01-31] MEDS ORDERED: PEPCID AC20 MG PO (08:45)
[2019-01-31] MEDS ORDERED: PROTONIX40 MG PO (08:45)
[2019-01-31 08:51] VITALS: BP 138/81; Ht 182.9 cm; Wt 95.5 kg
[2019-01-31 09:10] LABS: BASOPHILS 0.2 % (0-2); EOSINOPHILS 2.7 % (0-7); HEMATOCRIT 48.1 % (42.0-54.0); HEMOGLOBIN 16.1 g/dL (13.5-17.5); IMMATURE GRANULOCYTES 0.2 % (0-5); LYMPHOCYTES 24.4 % (15-50); MCHC 33.5 g/dL (31.0-37.0); MCV 92.7 fL (80.0-100.0); MEAN PLATELET VOLUME 10.4 fL (7.4-10.4); MONOCYTES 12.5 % (2-11); PLATELET COUNT 187 10x3/uL (130-400); RBC 5.19 10x6/uL (4.20-6.10); RDW 12.6 % (11.5-14.5); WBC 4.8 10x3/uL (4.8-10.8)
[2019-01-31 09:21] LABS: ALT (SGPT) 58 U/L (10-68); CALC OSMOLALITY 279 mosm/kg (275-300); CALCIUM 8.9 mg/dL (8.5-10.1); CARBON DIOXIDE 25.9 mmol/L (21.0-32.0); CHLORIDE - SERUM 105 mmol/L (98-107); CHOL - HDL RATIO 2.7 ratio (2.3-4.9); CHOLESTEROL, TOTAL 186 mg/dL (0-200); GLUCOSE 112 mg/dL (74-106); HDL CHOLESTEROL 69 mg/dL (32-96); LDL CHOLESTEROL 83 mg/dL (0-100); LDL-HDL RATIO 1.2 ratio (1.5-3.5); SODIUM 139 mmol/L (136-145); TRIGLYCERIDE 172 mg/dL (30-200); UREA NITROGEN 15 mg/dL (7-18); eGFR NON AFRICAN AMERICAN 79 mL/min (90-120)
--- NOTE | 2019-01-31 11:17 | OP ---
PATIENT NAME: MARIE JOHNSON MEDICAL RECORD: [id number] :52 LOCATION:D.CAT ADMISSION DATE: SURGEON: DOUG URBINA MD DATE OF OPERATION: 01/31/2019 PROCEDURES: 1. Left heart catheterization. 2. Selective coronary angiography. 3. Left ventriculogram. 4. Vein graft angiography. 5. IFR LAD and RCA. INDICATION: Unstable angina, coronary artery disease, and previous coronary bypass graft surgery, previous cardiac stenting. PROCEDURE IN DETAIL: After informed consent was obtained and after a detailed description of risks, benefits as well as alternative therapies, the patient elected to proceed with angiogram and angioplasty. The right femoral area was prepped and draped in normal sterile fashion. Right femoral artery was cannulated via modified Seldinger technique with placement of 6-Mongolian sheath. All catheters exchanged through this sheath. FINDINGS: Left ventriculogram was performed in standard 30-degree ARMSTRONG view, reveals good cardiac wall motion, ejection fraction 55%. SELECTIVE CORONARY ANGIOGRAPHY: 1. Left main showed no significant angiographic disease. 2. Left anterior descending has previously placed stents. There is a questionable stenosis after the previously placed stents; however, IFR was normal at 0.92. 3. Left circumflex has moderate irregularities, but no flow-limiting stenosis. 4. Right coronary is totally occluded. 5. Vein graft to the RCA is patent. There is a questionable stenosis after the patent vein graft; however, IFR was normal at 0.91. OVERALL IMPRESSION: Wide patency of the previously placed stents as well as a previous vein graft. Continue medical management of the coronary artery disease and cardiac risk factors. TRANSINT:[id number] Voice Confirmation ID: [id number] DOCUMENT ID: [id number] DOUG URBINA MD at 1117 CC: [id number] DICTATION DATE: 01/31/19 1102 PSYCHOLOGY DEPARTMENT CHAIR: 01/31/19 1109 [address] [place] [id number] [place] [id number]
--- NOTE | 2019-01-31 11:17 | HP ---
PATIENT: MARIE JOHNSON MEDICAL RECORD: [id number] ACCOUNT: [id number] LOCATION:[facility] : 52 ADMISSION DATE: 01/31/19 PCP: AYESHA SANDOVAL MD HISTORY AND PHYSICAL EXAMINATION ADMITTING DIAGNOSES: 1. Unstable angina, class IV. 2. Coronary artery disease. 3. Status post coronary bypass graft surgery. 4. Previous cardiac stent. 5. Hypertension. 6. Hyperlipidemia. 7. Family history of coronary artery disease. HISTORY OF PRESENT ILLNESS: This is a 68-year-old gentleman with a past history of coronary artery disease, bypass surgery 7 years ago, who presents with increasing anginal symptomatology. He has extreme shortness of breath that has increased over the past few days. He has now class IV anginal symptomatology. It is just like that of his previous angina with a dull aching pressure sensation across the anterior chest, initially with exertion, now having episodes at rest. He is on Imdur. He has increased his Imdur to 60 mg b.i.d. from 30 mg every day. He continues to have progression of the angina despite this as well. He is on metoprolol. His heart rate and blood pressure are optimal hence no other room for medical management and continue progression of his anginal symptomatology. REVIEW OF SYSTEMS: The patient reports easy bruising but reports no swollen glands. The patient reports no fever, no night sweats, no significant weight gain, no significant weight loss. No significant exercise tolerance. The patient reports no dry eyes, no irritation, no vision change. Patient reports no difficulty hearing and no ear pain. Patient reports no frequent nose bleeds or nose and sinus problems. Patient reports on arm pain on exertion. No shortness of breath while lying down. No history of heart murmur. Patient reports no cough, no wheezing or coughing up blood. Patient reports no abdominal pain, no vomiting. Normal appetite. No diarrhea and not vomiting blood. No nausea and no constipation. Patient reports no incontinence. No difficulty urinating. No hematuria. No increased frequency. Patient reports no muscle aches. No weakness, no arthralgias, no back pain. No swelling of the extremities. Patient reports no abnormal mole, no jaundice, no rashes. Reports no loss of consciousness. No weakness and no numbness. No seizures, dizziness, or headaches. The patient reports no depression, no sleep disturbance, feeling safe in a relationship and no alcohol abuse. Patient reports on fatigue. Reports no runny nose or sinus pressure. No itching, no hives, and no frequent sneezing. PHYSICAL EXAMINATION: CONSTITUTIONAL/GENERAL APPEARANCE: Well nourished, well developed, appears stated age. EYES: Lids and conjunctivae noninjected. No discharge. No pallor. ENT: Lips within normal limit. No cyanosis. No pallor. NECK: Carotid arteries, bilateral normal upstroke. No bruits. No thrills. No jugular venous pressure or distention. CERVICAL LYMPH NODES: Nontender. Nonenlarged. THYROID: Not enlarged. No nodules. CARDIOVASCULAR: Precordial exam, nondisplaced. No heaves or pericardial HISTORY AND PHYSICAL [id number] EVERRIGHT,MARIE RAY thrills. Rate and rhythm, regular. Heart sounds, normal S1, normal S2. No S3, no gallop, no rub. Systolic murmur, not heard. Diastolic murmur, not heard. RESPIRATORY: Respiratory effort, unlabored. Normal curvature. No thoracic deformity. No chest wall tenderness. Percussion, resonant. Auscultation, clear. No wheezes, no rales, no rhonchi. ABDOMEN: Soft, nondistended, nontender. No abdominal pain, no vomiting and normal appetite. MUSCULOSKELETAL: No joint tenderness, normal gait, normal tone. SKIN: Warm and dry. FAMILY HISTORY: Positive for premature coronary artery disease as well as hypertension. SOCIAL HISTORY: He is retired. Denies smoking or ETOH. OVERALL IMPRESSION: Unstable angina in progressive fashion despite maximal medical therapy. We will proceed with coronary angiography. Further care depends upon findings of the angiography. TRANSINT:[id number] Voice Confirmation ID: [id number] DOCUMENT ID: [id number] DOUG URBINA MD at 1117 CC: [id number] DICTATION DATE: 01/31/19 104 AGRICULTURAL ECONOMICS TEACHER: 01/31/19 1049 [address] [facility] [address] [place] [address]
--- NOTE | 2019-01-31 11:25 | NUR ---
REC TO ROOM 4 VIA STRETCHER FROM . MONITORING INITIATED. R GROIN SOFT, NO BLEEDING OR HEMATOMA. PPP. NSR ON TELE HR 74,NIBP 118/76. RR 14, EVEN AND UNLABORED, ON 2LNC SAT IS 95%. AT BEDSIDE. PT RAFY SIPS OF ICE WATER. EXPL NEED TO LIE FLAT FOR ONE HOUR, THEN MAY SIT UP AND EAT, AND WILL PROGRESS MOBILITY FROM THERE. VERBALIZES UNDERSTANDING.
--- NOTE | 2019-01-31 11:34 | NUR ---
R GROIN CDI, NO BLEEDING/HEMATOMA. PPP. VSS, HR NSR 70, NIBP 107/71. AT BEDSIDE. DENIES NEEDS.
--- NOTE | 2019-01-31 12:12 | NUR ---
R GROIN SOFT, CDI. NO BLEEDING OR HEMATOMA. PPP. VSS, HR 64, NSR. NIBP 108/73. NO COMPLAINTS.
--- NOTE | 2019-01-31 12:20 | NUR ---
ASSISTED TO SITTING UP IN BED, SANDWICH AND DRINK PROVIDED. R GROIN CDI, SOFT. NO BLEEDING OR HEMATOMA. PPP. VSS, HR 77 NSR. NIBP 102/73. AT BEDSIDE ASSISTING W MEAL. DENIES NEEDS.
--- NOTE | 2019-01-31 12:36 | NUR ---
SITTING UP, R GROIN SOFT, NO BLEEDING OR HEMATOMA. R PPP. VSS, HR NSR 82. SAT 93% ON RA. NIBP 109/76. CONT MONITORING.
--- NOTE | 2019-01-31 12:45 | NUR ---
PT FINISHED EATING. R GROIN SOFT, NO BLEEDING/HEMATOMA. IV DC W TIP INTACT, MONITORING DISCONTINUED. AMBULATED TO BATHROOM W ASSIST, GROIN REMAINS SOFT AND NO BLEEDING/HEMATOMA. PT DRESSING FOR DC.
--- NOTE | 2019-01-31 13:10 | NUR ---
DC INSTRUCTION COMPLETED W PT AND . DC HOME VIA WHEELCHAIR TO PRIVATE CAR. PT HAS ALL BELONGINGS.
== END 2019-01-31 13:10 ==
LOC: D.CATH 08:33
PROVIDERS: ATTEND Internal Medicine Interventional Cardiology
DX: I25.110 Atherosclerotic heart disease of native coronary artery with unstable angina pectoris (principal)